=== PATIENT | female | born 1940 | race Caucasian/White ===

== ENCOUNTER → 2017-06-12 08:24 | Outpatient (CLI) | payer MEDICARE, BC ==
[2012-06-26 06:44] VITALS: BMI 34.8
== END | disposition home or self-care (01) ==
LOC: D.RAD 08:24
DX: K21.9 Gastro-esophageal reflux disease without esophagitis (principal)

== ENCOUNTER → 2017-08-09 17:32 | Outpatient (CLI) | payer MEDICARE, BC ==
[2012-06-26 06:44] VITALS: BMI 34.8
== END | disposition home or self-care (01) ==
LOC: D.MAMMO 09:30
DX: Z12.31 Encounter for screening mammogram for malignant neoplasm of breast (principal)

== ENCOUNTER 2018-09-10 13:51 | Emergency (ER) | payer MEDICARE, BC ==
[~2018-09-10] VITALS: Ht 157.5 cm; Wt 76.4 kg
[2018-09-10 13:54] VITALS: Ht 157.5 cm; Wt 76.4 kg
[2018-09-10] MEDS ORDERED: ELIQUIS5 MG PO (13:56)
[2018-09-10] MEDS ORDERED: COZAAR25 MG PO (13:56)
[2018-09-10] MEDS ORDERED: GLUCOPHAGE500 MG PO (13:56)
[2018-09-10 14:43] LABS: BASOPHILS 0.2 % (0-2); HEMATOCRIT 32.8 % (36.0-48.0); HEMOGLOBIN 10.9 g/dL (12-16); IMMATURE GRANULOCYTES 0.4 % (0-5); MCH 28.9 pg (26.0-34.0); MCHC 33.2 g/dL (31.0-37.0); MEAN PLATELET VOLUME 10.6 fL (7.4-10.4); MONOCYTES 7.8 % (2-11); NEUTROPHILS 79.6 % (40-80); RBC 3.77 10x6/uL (4.00-5.40); RDW 14.1 % (11.5-14.5); WBC 5.4 10x3/uL (4.8-10.8)
[2018-09-10 14:48] LABS: PLATELET COUNT 172 10x3/uL (130-400)
[2018-09-10 14:58] LABS: ALBUMIN 3.6 g/dL (3.4-5.0); ALKALINE PHOSPHATASE 80 U/L (46-116); ALT (SGPT) 13 U/L (10-68); BILIRUBIN - TOTAL 0.48 mg/dL (0.2-1.3); CALC OSMOLALITY 274 mosm/kg (275-300); CALCIUM 8.8 mg/dL (8.5-10.1); CARBON DIOXIDE 20.1 mmol/L (21.0-32.0); CHLORIDE - SERUM 103 mmol/L (98-107); GLUCOSE 108 mg/dL (74-106); POTASSIUM - SERUM 3.7 mmol/L (3.5-5.1); PROTEIN - SERUM 7.3 g/dL (6.4-8.2); SODIUM 136 mmol/L (136-145); UREA NITROGEN 18 mg/dL (7-18); eGFR NON AFRICAN AMERICAN 57 mL/min (90-120)
[2018-09-10 15:16] LABS: CKMB 0.2 U/L (0.0-3.6); CREATINE KINASE 49 UL (21-215); TROPONIN-I 0.024 ng/mL (0.000-0.060)
[2018-09-10 15:49] LABS: APPEARANCE CLEAR (CLEAR); BILIRUBIN NEGATIVE (NEGATIVE); COLOR YELLOW (YELLOW); GLUCOSE NEGATIVE (NEGATIVE); KETONE NEGATIVE (NEGATIVE); NITRITE NEGATIVE (NEGATIVE); PROTEIN NEGATIVE (NEGATIVE); UROBILINOGEN NORMAL (NORMAL)
[2018-09-10 15:50] LABS: WHITE CELLS - URINE 0-5 /hpf (0-5)
[2018-09-10] MEDS ORDERED: LEVAQUIN750 MG PO (16:42)
[2018-09-10 17:33] VITALS: BP 155/70
== END 2018-09-10 17:10 | disposition home or self-care (01) ==
LOC: D.ER 13:51
PROVIDERS: Emergency Medicine
DX: J15.9 Unspecified bacterial pneumonia (principal); E11.9 Type 2 diabetes mellitus without complications; I10 Essential (primary) hypertension

== ENCOUNTER → 2018-11-26 13:00 | Outpatient (CLI) | payer MEDICARE, BC ==
[2018-09-10 13:54] VITALS: BMI 30.8
[~2018-11-26 13:00] MED LIST: COZAAR25 MG PO; ELIQUIS5 MG PO; GLUCOPHAGE500 MG PO; LEVAQUIN750 MG PO
== END | disposition home or self-care (01) ==
LOC: D.CT 13:00
PROVIDERS: ATTEND Internal Medicine Pulmonary Disease
DX: R93.89 Abnormal findings on diagnostic imaging of other specified body structures (principal)

== ENCOUNTER 2019-03-06 20:16 | Observation (INO) | payer MEDICARE, BC ==
[~2019-03-06] VITALS: Ht 157.5 cm; Wt 77.9 kg
--- NOTE | ~2019-03-06 | HEMODYNAMI ---
PATIENT:SKYE SUERO MEDICAL RECORD: [id number] : 42 [facility]ATION[facility] [facility] [id number] ADMISSION DATE: 03/06/19 Generatedon:03/07/201914:07 Patient name: SKYE SUERO Patient #: [id number] SSN: [id number] : 1940 Date of study: 03/07/2019 Page: Of Hemodynamic Procedure Report Patient Data Patient Demographics Procedure consent was obtained First Name: SKYE Gender: Female Last Name: NIMO : 1940 Middle Initial: Gorge Age: 78 year(s) Patient #: [id number] Race: SSN: [id number] Additional ID: [id number] Contact details Address: [address] [place] [address] [place] [place] [facility] Zip code: [address] Past Medical History Allergies Allergen Reaction Date Comments Reported Other allergy 03/07/2019 plavix, pcn Other allergy 03/07/2019 PCN Admission Admission Data Admission Date: 03/06/2019 Admission Time: 21:58 Arrival Date: 03/07/2019 Arrival Time: 0:00 Admit Source: Other Insurance Payor: Private Room #: D.2120 health insurance, Medicare Height (in.): 61.81 BSA: 1.78 (m2) Height (cm.): 157 BMI: 31.24 (kg/m2) Weight (lbs.): 169.76 Weight (kg.): 77 Lab Results Lab Result Date: 03/07/2019 Lab Result Time: 0:00 Biochemistry Name Units Result Min Max BUN mg/dl 16 --(---*)-- 7 18 Creatinine mg/dl 0.6 --(*---)-- 0.6 1.3 eGFR ml/min 0.7946018 *-(----)-- 90 120 NONAFRICAN CBC Name Units Result Min Max Hemoglobin g/dl 17.1 --(---*)-- 13.5 17.5 Procedure Procedure Types Cath Procedure Diagnostic Procedure [facility] w/Coronaries FFR/IVUS FFR Initial FFR Additional Sedation Charges Moderate Sedation up to 30 minutes PCI Procedure Coronary Stent Coronary Stent Initial Hemochron ACT Test Procedure Description Procedure Date Procedure Date: 03/07/2019 Procedure Start Time: 13:44 Procedure End Time: 14:05 Procedure Staff Name Function Jason Carey MD Performing Physician Ketty Middleton RT Monitor Alessandra Rocha RN Nurse Abiola Callaway RT Scrub Indication Chest pain Procedure Data Cath Procedure Fluoroscopy Diagnostic fluoroscopy Total fluoroscopy Time: 5.5 time: 5.5 min min Diagnostic fluoroscopy Total fluoroscopy dose: 745 dose: 745 mGy mGy Contrast Material Contrast Material Type Amount (ml) Isovue 300 78 Entry Location Entry Primary Successful Side Size Upsize Upsize Entry Closure Succes sful Closure Location (Fr) 1 (Fr) 2 (Fr) Remarks Device Remarks Femoral Right 5 Fr 6 Fr Exoseal artery Short Estimated blood loss: 10 ml Diagnostic catheters Device Type Used For End Catheter Placement MULTIPACK Pigtail 5 Fr Ventriculography catheter MULTIPACK JL 4.0 5Fr Procedure catheter MULTIPACK 3DRC 5Fr Procedure catheter Procedure Complications No complications Procedure Medications Medication Administration Route Dosage Oxygen etCO2 Nasal cannula 2 l/min Lidocaine 2% added to field 20 Heparin Flush Bag added to field 2 bags (1000units/500ml NS) 0.9% NaCl I.V. 100 ml/hr Radial Cocktail I.A. 1 syringe (Verapamil 2mg/Nitro 400mcg/Heparin 1500units) Versed I.V. 1 mg Fentanyl I.V. 50 mcg Versed I.V. 1 mg Fentanyl I.V. 50 mcg Heparin Bolus I.V. 4000 units Hemodynamics Rest BSA: 1.78 (m2) HGB: 17.1 (g/dl) O2 Consumption: Estimated: 162.75 (ml/min) O2 Co nsumption indexed: Estimated:91.43 (ml/min/m) Heart Rate: 72 (bpm) Snapshots Pre Cath Intra NCS Post Cath Vital Signs Time Heart Resp SPO2 etCO2 NIBP (mmHg) Rhythm Pain Sedation Rate (ipm) (%) (mmHg) Status Level (bpm) 13:27:16 68 19 97 24.7 Time NSR 0 (11) 10(A) Exceeded , No pain 13:31:34 64 12 96 18.7 169/84(127) NSR 0 (11) 10(A) , No pain 13:35:48 60 12 97 22.5 143/92(127) NSR 0 (11) 10(A) , No pain 13:40:00 60 12 97 20.2 148/73(117) NSR 0 (11) 10(A) , No pain 13:44:14 64 13 96 20.2 146/74(106) NSR 0 (11) 9(A) , No pain 13:48:26 62 14 96 33.8 134/77(95) NSR 0 (11) 9(A) , No pain 13:52:36 60 15 97 33.8 124/65(106) NSR 0 (11) 9(A) , No pain 13:56:44 61 28 96 36.8 128/66(102) NSR 0 (11) 9(A) , No pain 14:00:49 65 11 93 33.7 144/73(106) NSR 0 (11) 10(A) , No pain 14:05:01 60 12 97 35.2 131/72(105) NSR 0 (11) 10(A) , No pain Medications Time Medication Route Dose Verified Delivered Reason Not es Effectiveness by by 13:30:30 Oxygen etCO2 2 l/min Jason Aparicio used for Nasal Aurelio Rocha RN procedure cannula 13:30:37 Lidocaine 2% added 20ml Jason Gomez for local to vial Aurelio Carey MD anesthetic field 13:30:43 Heparin Flush added 2 bags Jason Gomez used for Bag to Aurelio Carey MD procedure (1000units/500ml field NS) 13:30:51 0.9% NaCl I.V. 100 Jason Aparicio Per physician ml/hr Aurelio Rocha RN 13:31:03 Radial Cocktail I.A. 1 Jason Gomez for (Verapamil syringe Aurelio Carey MD vasodilation 2mg/Nitro 400mcg/Heparin 1500units) 13:42:18 Versed I.V. 1 mg Jason Castilloie for sedation Aurelio Rocha RN 13:42:23 Fentanyl I.V. 50 mcg Jason Aparicio for sedation Aurelio Rocha RN 13:47:04 Versed I.V. 1 mg Jason Aparicio for sedation Tauth MD Rocha RN 13:47:07 Fentanyl I.V. 50 mcg Jason Aparicio for sedation Aurelio Rocha RN 13:50:14 Heparin Bolus I.V. 4000 Jason Aparicio for nikhil ified units Aurelio Rocha RN anticoagulation with dr carey Procedure Log Time Note 13:23:02 Arrival Date: 03/07/2019 12:00:00 AM 13:23:04 Admit Source: Other 13:23:10 Insurance Payor : Private health insurance, Medicare 13:23:15 Patient Height : 61.81 inches 13:23:18 Patient Weight : 169.76 lbs 13:24:25 Diagnostic Cath Status : Urgent 13:25:26 Procedure Status Urgent Heart Cath (IP). 13:25:30 Abiola Callaway RT(R) sent for patient. Start room use. 13:25:31 Time tracking: Regular hours (M-F 7:00 - 5:00) 13:25:36 Plan of Care:Hemodynamics will remain stable., Cardiac rhythm will remain stable., Comfort level will be maintained., Respiratory function will remain adequate., Patient/ family verbilizes understanding of procedure., Procedure tolerated without complication., Recovers from procedure without complications.. 13:25:42 Patient received from Med II to CCL 2 Alert and oriented. Tansferred to table in Supine position. 13:25:44 Signed procedure consent form obtained from patient. 13:25:45 Warm blankets applied, and bobby hugger turned on for patient comfort. 13:25:46 Correct patient and procedure confirmed by team. 13:25:46 ECG and BP/O2 sat monitors applied to patient. 13:25:47 Baseline sample Acquired. 13:25:47 Vital chart was started 13:25:52 Full Disclosure recording started 13:25:58 H&P Date Dictated: 03/06/2019 Within 30 days and on chart.. 13:25:59 Pre-procedure instructions explained to patient. 13:26:03 Family in patients room. 13:26:07 Patient NPO since Midnight. 13:26:22 Patient allergic to Other allergyPCN 13:26:25 Is the patient allergic to Iodine/contrast media? No. 13:26:26 Was the patient premedicated? Yes 13:26:29 Is patient on blood thinner?Yes 13:28:31 Patient diabetic? Yes. 13:28:34 If on Metformin: Last Dose? 03/06/2019 13:28:50 Dentures? No . 13:28:56 ACC The patient was administered the following blood thiners within the last 24 hours: ACCPlavix 13:29:10 Patient pain scale 0/10 ?. 13:29:17 IV patent on arrival in left forearm with 0.9% NaCl at [facility]. 13:29:22 Lab results completed and on chart. 13:29:27 Stress Test: no; N/A ? 13:29:32 Right Radial & Right Groin area was prepped with chlora-prep and draped in sterile fashion 13:29:34 Alarms reviewed by R. N. 13:29:34 Sharps counted by scrub and verified by R.N. 13:30:30 Oxygen 2 l/min etCO2 Nasal cannula was administered by Alessandra Rocha RN; used for procedure; Verbal order read back and verified. 13:30:37 Lidocaine 2% 20ml vial added to field was administered by Jason Carey MD; for local anesthetic; Verbal order read back and verified. 13:30:43 Heparin Flush Bag (1000units/500ml NS) 2 bags added to field was administered by Jason Carey MD; used for procedure; Verbal order read back and verified. 13:30:51 0.9% NaCl 100 ml/hr I.V. was administered by Alessandra Rocha RN; Per physician; Verbal order read back and verified. 13:31:03 Radial Cocktail (Verapamil 2mg/Nitro 400mcg/Heparin 1500units) 1 syringe I.A. was administered by Jason Carey MD; for vasodilation; Verbal order read back and verified. 13:31:48 Physician arrived 13:33:17 Maximum allowable contrast dose (3.7 X eGFR X 0.75)35 ml. 13:33:21 3b) 30-44 Moderately reduced kidney function. 13:34:49 Procedure type changed to Cath procedure, Diagnostic procedure, LHC, LHC w/Coronaries, FFR/IVUS, FFR Initial, FFR Additional, Sedation Charges, Moderate Sedation up to 30 minutes, PCI procedure, Coronary Stent, Coronary Stent Initial, Hemochron ACT Test 13:35:19 Indication : Chest pain 13:39:38 Risk of MAXIM: 3.1 13:41:55 --------ALL STOP TIME OUT------ 13:41:56 Final Timeout: patient, procedure, and site verified with staff and physician. All members of the team are in agreement. 13:41:58 Right Radial & Right Groin site verified by team. 13:42:04 Fire Safety Assessment: A--An alcohol-based skin anteseptic being used preoperatively., C--Open oxygen or nitrous oxide is being used., D--An ESU, laser, or fiber-optic light is being used. 13:42:14 Physical assessment completed. ASA score P 2 - A patient with mild systemic disease as per Jason Carey MD. 13:42:18 Versed 1 mg I.V. was administered by Alessandra Rocha RN; for sedation; Verbal order read back and verified. 13:42:18 Sedation plan: IV Moderate Sedation Medication:Versed, Fentanyl 13:42:23 Fentanyl 50 mcg I.V. was administered by Alessandra Rocha RN; for sedation; Verbal order read back and verified. 13:44:32 Use device set Femoral Dx 13:44:36 Procedure started. 13:44:46 Local anesthetic to right femoral artery with Lidocaine 2% by Jason Carey MD.INITIAL ACCESS ONLY 13:44:57 A 5 Fr sheath was inserted into the Right Femoral artery 13:44:59 ACIST Syringe (11156) opened to sterile field. 13:45:00 Bag Decanter (2002) opened to sterile field. 13:45:01 Medline Cath Pack ([id number]) opened to sterile field. 13:45:02 ACIST Hand Control (43641) opened to sterile field. 13:45:02 ACIST Manifold (82140) opened to sterile field. 13:45:03 DIAGNOSTIC Multipack 5Fr catheter set (EW2481) opened to sterile field. 13:45:08 SHEATH 5FR [place] (DEH161) opened to sterile field. 13:45:08 EMERALD Guide Wire (591-898) opened to sterile field. 13:46:27 A MULTIPACK Pigtail 5 Fr catheter was advanced over the wire and used for Ventriculography. 13:46:30 LV angiography performed. 13:46:33 LV gram done using DOYLE 13:46:39 EF : 40 % 13:47:04 Versed 1 mg I.V. was administered by Alessandra Rocha RN; for sedation; Verbal order read back and verified. 13:47:07 Fentanyl 50 mcg I.V. was administered by Alessandra Rocha RN; for sedation; Verbal order read back and verified. 13:47:31 Catheter removed. 13:47:38 A MULTIPACK JL 4.0 5Fr catheter was advanced over the wire and used for Procedure. 13:47:43 LCA angiography performed. 13:48:01 Catheter removed. 13:48:12 A MULTIPACK 3DRC 5Fr catheter was advanced over the wire and used for Procedure. 13:48:16 RCA angiography performed. 13:48:18 Catheter removed. 13:49:54 [place] Verrata Plus pressure wire (86447D) opened to sterile field. 13:49:55 INFLATOR Merit BasixCompak (TZ9168) opened to sterile field. 13:49:55 GUIDE 6FR XBLAD 3.5 catheter ([id number]) opened to sterile field. 13:49:56 CHOICE PT Extra Support 182cm wire ([id number]) opened to sterile field. 13:49:57 SHEATH 6FR [place] (ZPT934) opened to sterile field. 13:50:04 Proceeding to intervention. 13:50:14 Heparin Bolus 4000 units I.V. was administered by Alessandra Rocha RN; for anticoagulation; verified with dr carey Verbal order read back and verified. 13:50:15 Sheath upsized to a 6 Fr Short. 13:50:27 Pre PCI Site: [place] mLAD has 95% stenosis. 13:50:38 6 Fr xblad guide catheter was inserted over the wire 13:50:54 choice wire advanced. 13:50:57 Wire advanced across lesion. 13:52:35 Inflate balloon Inflation number: 1 A EUPHORA 3.5 x 15 Balloon ([id number]) was prepped and advanced across the Mid LAD , then inflated to 10 NIMA for 0:03 (min:sec) . 13:52:49 Inflation number: 2 The EUPHORA 3.5 x 15 Balloon ([id number]) was reinflated across the Mid LAD , to 11 NIMA for 0:07 (min:sec) . 13:53:13 Balloon removed over the wire. 13:56:22 Place stent Inflation Number: 3 A CAREN RX 3.5 x 22 stent ([id number]) was prepped and advanced across the Mid LAD 99. The stent was deployed at 19 NIMA for 1:42 (min:sec) 0. 13:56:30 Stent catheter was removed intact over wire. 13:56:51 Wire removed. 13:56:56 FFR/IFR wire advanced. 13:57:10 mCirc lesion measured at .92 with IFR 13:57:14 Wire removed. 13:57:16 Catheter removed. 13:57:36 6 Fr AR1 guide catheter was inserted over the wire 13:57:44 FFR/IFR wire advanced. 14:00:00 mRCA lesion measured at .98 with IFR 14:00:05 Wire removed. 14:00:07 Catheter removed. 14:00:26 Sheath removed intact; hemostasis achieved with Exoseal to the Right Femoral artery. 14:01:04 ACT drawn and resulted at 200 seconds. (normal therapeutic range 180-240 seconds). 14:01:48 EXOSEAL 6Fr (EX600) opened to sterile field. 14:01:51 Procedure ended.(Physican Out) 14:02:07 Fluoroscopy time 05.50 minutes. 14:02:12 Fluoroscopy dose: 745 mGy 14:02:12 Flurop Dose total: 745 14:02:17 Dose Area Product 93717 mGy/cm. 14:02:21 Contrast amount:Isovue 300 78ml. 14:02:30 Maximum allowable dose exceeded? No. 14:02:32 Sharps counted by scrub and verified by R.N. 14:02:35 Insertion/operative site no bleeding no hematoma. 14:02:40 Post right femoral artery:stable 14:02:51 Post-procedure physical assessment completed. ASA score P 2 - A patient with mild systemic disease as per Jason Carey MD. 14:03:04 Estimated blood loss: 10 ml 14:03:06 Post procedure instruction explained to patient.Patient verbalizes understanding. 14:04:47 Procedure and supply charges have been captured, reviewed, submitted and are correct. 14:05:06 Procedure Complication : No complications 14:05:09 Vital chart was stopped 14:05:11 [facility] Findings: MVD- PCI performed (see procedure note) 14:05:14 See physician's report for complete and final results. 14:05:16 Report given to Pre/Post Procedure Room. 14:05:20 Patient transfered to Pre/Post Procedure Room with Bed. 14:05:22 Procedure ended. 14:05:22 Full Disclosure recording stopped 14:05:33 End room use (Document Last) 14:05:55 End room use (Document Last) 14:06:34 End room use (Document Last) 14:06:56 ACC-PCI Only Patient was given prescriptions, or instructed by Jason Carey MD to start/continue the following medications upon discharge: Plavix Intervention Summary Intervention Notes Time ActionType Lesion and Equipment Used Action# Pressure Duration Attributes 13:52:35 Inflate Mid LAD EUPHORA 3.5 x 1 10 00:03 balloon 15 Balloon ([id number]) 13:52:49 Reinflate Mid LAD EUPHORA 3.5 x 2 11 00:08 balloon 15 Balloon ([id number]) 13:56:22 Place stent Mid LAD CAREN RX 3.5 x 3 19 01:42 22 stent ([id number]) Device Usage Item Name Manufacture Quantity Catalog Number Hospital Part Current Minimal Lot# / Charge Number Stock Stock Serial# Code ACIST Syringe Acist 1 73565 818080 040717 225213 20 (87969) Medical Systems Inc Bag Decanter Microtek 1 2001S 715571 74049 222821 5 (2001S) Medical Inc. Medline Cath Medline 1 [id number] 395636 53324 193553 5 Pack ([id number]) ACIST Hand Acist 1 60061 426655 087268 252025 5 Control Medical (69397) Systems Inc ACIST Manifold Acist 1 87030 044750 634459 960508 5 (45841) Medical Systems Inc DIAGNOSTIC Cardinal 1 BE6111 239987 70974 101736 30 Multipack 5Fr Health catheter set (CL7526) SHEATH 5FR Terumo 1 KMZ838 588684 525947 052159 5 [place] (EQE327) EMERALD Guide Cardinal 1 502-455 256402 220050 894470 5 Wire (502-957) Health MULTIPACK Cardinal 1 323400 5 Pigtail 5 Fr Health catheter MULTIPACK JL Cardinal 1 614170 5 4.0 5Fr Health catheter MULTIPACK 3DRC Cardinal 1 034672 5 5Fr catheter Health [place] 1 87990C 956416 866763359 722951 5 Verrata Plus pressure wire (01281Y) INFLATOR Merit Merit 1 VV4537 752237 919289 917845 15 BasixCompak Medical (DT9936) GUIDE 6FR Cardinal 1 [id number] 175648 712437 342560 10 XBLAD 3.5 Health catheter ([id number]) CHOICE PT [place] 1 [id number] 684686 996663 975079 5 Extra Support Scientific 182cm wire (4847579N8) SHEATH 6FR Terumo 1 FSL596 852134 679450 634507 40 [place] (HSA242) EUPHORA 3.5 x Medtronic 1 [id number] 606893 048088 691359 5 [id number] 15 Balloon (KHQ7557T) CAREN RX 3.5 x Medtronic 1 [id number] 411398 7971832 592443 5 [id number] 22 stent ([id number]) EXOSEAL 6Fr Cardinal 1 EX600 058848 405776 827918 10 (EX600) Health Signature Audit [place] Stage Time Signature Unsigned Intra-Procedure 03/07/2019 Ketty Middleton 2:05:55 PM RT(R) Intra-Procedure 03/07/2019 Alessandra Rocha RN 2:06:34 PM Intra-Procedure 03/07/2019 Jason Carey 2:07:25 PM Signatures Performing Physician : Signature : Jason Carey MD Date : Time : Monitor : Ketty Middleton Signature : RT Date : Time : Nurse : Alessandra Rocha RN Signature : Date : Time : [place] [address] [place] [address]
[2019-03-06 20:45] LABS: BASOPHILS 0.6 % (0-2); EOSINOPHILS 3.5 % (0-7); HEMOGLOBIN 11.4 g/dL (12-16); IMMATURE GRANULOCYTES 0.3 % (0-5); LYMPHOCYTES 33.4 % (15-50); MCH 29.2 pg (26.0-34.0); MCHC 32.6 g/dL (31.0-37.0); MCV 89.5 fL (80.0-100.0); MEAN PLATELET VOLUME 10.5 fL (7.4-10.4); MONOCYTES 8.8 % (2-11); NEUTROPHILS 53.4 % (40-80); RBC 3.91 10x6/uL (4.00-5.40); RDW 14.4 % (11.5-14.5); WBC 6.9 10x3/uL (4.8-10.8)
[2019-03-06 20:51] LABS: INR 1.02 (0.85-1.17); PROTIME 13.3 SECONDS (11.6-15.0)
[2019-03-06 20:52] LABS: APTT 30.3 SECONDS (22.8-39.4)
[2019-03-06 20:54] LABS: CALC OSMOLALITY 285 mosm/kg (275-300); CARBON DIOXIDE 26.1 mmol/L (21.0-32.0); CHLORIDE - SERUM 102 mmol/L (98-107); CREATININE - SERUM 1.5 mg/dL (0.6-1.3); GLUCOSE 137 mg/dL (74-106); POTASSIUM - SERUM 3.8 mmol/L (3.5-5.1); SODIUM 139 mmol/L (136-145); UREA NITROGEN 28 mg/dL (7-18); eGFR NON AFRICAN AMERICAN 36 mL/min (90-120)
[2019-03-06 20:55] LABS: PLATELET COUNT 234 10x3/uL (130-400)
[2019-03-06 21:10] LABS: ALBUMIN 3.8 g/dL (3.4-5.0); ALKALINE PHOSPHATASE 73 U/L (46-116); ALT (SGPT) 17 U/L (10-68); BILIRUBIN - TOTAL 0.25 mg/dL (0.2-1.3); CKMB 1.2 U/L (0.0-3.6); CREATINE KINASE 55 UL (21-215); PROTEIN - SERUM 7.8 g/dL (6.4-8.2); TROPONIN-I < 0.017 ng/mL (0.000-0.060)
--- NOTE | 2019-03-06 21:20 | NUR ---
PT AMBULATED TO RESTROOM INDEPENDENTLY.
[2019-03-06 21:57] LABS: APPEARANCE CLOUDY (CLEAR); BILIRUBIN NEGATIVE (NEGATIVE); COLOR STRAW (YELLOW); GLUCOSE NEGATIVE (NEGATIVE); KETONE NEGATIVE (NEGATIVE); NITRITE NEGATIVE (NEGATIVE); PROTEIN TRACE mg/dL (NEGATIVE); SPECIFIC GRAVITY 1.015 (1.005-1.020); UROBILINOGEN NORMAL (NORMAL)
[2019-03-06 22:02] LABS: BACTERIA MODERATE /hpf (NEGATIVE)
[2019-03-06] MEDS ORDERED: SYNTHROID50 MCG PO (22:43)
[2019-03-07 00:30] VITALS: BP 163/74
[2019-03-07 00:44] VITALS: BP 163/74; BMI 31.4
--- NOTE | 2019-03-07 02:15 | NUR ---
PATIENT RESTING COMFORTABLE IN BED. RESPIRATIONS ARE EVEN AND UNLABORED. NO S/S OF DISTRESS. CALL LIGHT WITHIN REACH. WILL CPOC.
[2019-03-07 04:30] VITALS: BP 138/54
[2019-03-07 05:10] LABS: BASOPHILS 0.8 % (0-2); EOSINOPHILS 3.8 % (0-7); HEMATOCRIT 31.7 % (36.0-48.0); HEMOGLOBIN 10.1 g/dL (12-16); IMMATURE GRANULOCYTES 0.2 % (0-5); LYMPHOCYTES 40.3 % (15-50); MCH 28.5 pg (26.0-34.0); MCHC 31.9 g/dL (31.0-37.0); MCV 89.5 fL (80.0-100.0); MEAN PLATELET VOLUME 10.3 fL (7.4-10.4); MONOCYTES 8.9 % (2-11); PLATELET COUNT 196 10x3/uL (130-400); RBC 3.54 10x6/uL (4.00-5.40); RDW 14.2 % (11.5-14.5); WBC 6.3 10x3/uL (4.8-10.8)
[2019-03-07 05:34] LABS: % SATURATION 11 % (15-55); IRON 36 ug/dl (35-150); TOTAL IRON BIND CAPACITY 317 ug/dl (260-445); UNSAT IRON BIND CAPACITY 281 ug/dl (150-375)
[2019-03-07 06:13] LABS: ALBUMIN 3.2 g/dL (3.4-5.0); ALKALINE PHOSPHATASE 59 U/L (46-116); BILIRUBIN - TOTAL 0.23 mg/dL (0.2-1.3); CALC OSMOLALITY 284 mosm/kg (275-300); CALCIUM 8.4 mg/dL (8.5-10.1); CARBON DIOXIDE 26.6 mmol/L (21.0-32.0); CHLORIDE - SERUM 104 mmol/L (98-107); CKMB 2.1 U/L (0.0-3.6); CREATINE KINASE 50 UL (21-215); CREATININE - SERUM 1.3 mg/dL (0.6-1.3); FERRITIN 19 ng/mL (3-244); GLUCOSE 104 mg/dL (74-106); MAGNESIUM - SERUM 1.4 mg/dL (1.8-2.4); PRO BNP 1774 pg/mL (0-450); PROTEIN - SERUM 6.7 g/dL (6.4-8.2); SODIUM 141 mmol/L (136-145); THYROID STIMULATING HORMONE 2.81 uIU/mL (0.36-3.74); UREA NITROGEN 25 mg/dL (7-18); eGFR NON AFRICAN AMERICAN 42 mL/min (90-120)
[2019-03-07 06:50] LABS: ALT (SGPT) 12 U/L (10-68)
[2019-03-07 06:51] LABS: TROPONIN-I 0.416 ng/mL (0.000-0.060)
--- NOTE | 2019-03-07 07:10 | NUR ---
REPORT RECEIVED FROM MARKETING PR INTERN AND PATIENT CARE ASSUMED. PATIENT LAYING IN BED AWAKE, ALERT AND ORIENTED X 4. PATIENT DENIES ANY NEEDS OR PAIN. AT BS. WILL CONTINUE WITH PLAN OF CARE. SR UP X 2 BED IN LOW POSITION AND CALL LIGHT IN REACH. PATIENT IS NPO AWAITING CARDIOLOGY CONSULT.
[2019-03-07 09:07] VITALS: Ht 157.5 cm; Wt 77.9 kg
[2019-03-07 12:01] VITALS: BP 180/70
--- NOTE | 2019-03-07 13:00 | NUR ---
PATIENT IS STABLE AND VSS. PATIENT TO [facility] AND [facility] TEAM.
--- NOTE | 2019-03-07 13:28 | NUR ---
PATIENT IS STABLE AND VSS. PATIENT DENIES ANY NEEDS OR PAIN. SON IN ROOM. WILL CONTNUE TO MONITOR. SR UP X 2 BED IN LOW POSITION AND CALL LIGHT IN REACH.
[2019-03-07 14:18] VITALS: BP 185/79
--- NOTE | 2019-03-07 14:31 | NUR ---
PER DR CARRERO, THERE ARE SCRIPTS ON THE CHART AND PATIENT CAN BE DISCHARGED.
[2019-03-07] MEDS ORDERED: PLAVIX75 MG PO (15:07)
[2019-03-07] MEDS ORDERED: ASPIRIN325 MG PO (15:08)
[2019-03-07] MEDS ORDERED: PRAVACHOL20 MG PO (15:11)
[2019-03-07] MEDS ORDERED: CIPRO500 MG PO (15:12)
--- NOTE | 2019-03-07 19:33 | NUR ---
REPORT RECIEVED AND INITIAL ROUNDS COMPLETED. PT RESTING IN BED WITH NO DISTRESS. AT BEDSIDE. RIGHT GROIN DRESSING C/D/I. NO BRUISING, NO SWELLING. REMOVED IV TO LEFT OUTER A/C. REVIEWED DISCHARGE PAPERWORK AND COPIES SENT WITH PATIENT. PT DISCHARGED TO HOME. TAKEN TO PRIVATE VEHICLE IN WHEELCHAIR TO CARE OF .
--- NOTE | 2019-03-11 11:24 | OP ---
PATIENT NAME: SKYE SUERO MEDICAL RECORD: [id number] :42 LOCATION:D.M2 D.0 ADMISSION DATE:03/06/19 SURGEON: LORA CARRERO MD DATE OF OPERATION: 03/07/2019 PROCEDURES: 1. PTCA stent LAD. 2. IFR left circumflex. 3. IFR RCA. 4. Left heart catheterization. 5. Selective coronary angiography. 6. Left ventriculogram. INDICATION: Myocardial infarction. PROCEDURE IN DETAIL: After informed consent was obtained and after a detailed description of risks, benefits as well as alternative therapies, the patient elected to proceed with angiogram and angioplasty. The right femoral area was prepped and draped in normal sterile fashion. Right femoral artery was cannulated via modified Seldinger technique with placement of 6-German sheath. All catheters exchanged through this sheath. FINDINGS: The left ventriculogram was performed in standard 30-degree DOYLE view reveals mild global hypokinesis, ejection fraction in the 40% range. SELECTIVE CORONARY ANGIOGRAPHY: 1. Left main is with no significant angiographic disease. 2. Left anterior descending has 99% stenosed. 3. Left circumflex has moderate irregularities. The IFR is normal. 4. Right coronary artery has moderate irregularities, IFR is normal. PTCA STENT OF THE LAD: The stent used was a 3.5 x 15 mm Silvestre. Result was 0% residual stenosis. OVERALL IMPRESSION: Successful percutaneous transluminal coronary angioplasty stent of the left anterior descending going from 99% initial stenosis to 0% residual. TRANSINT:[id number] Voice Confirmation ID: [id number] DOCUMENT ID: [id number] LORA CARRERO MD at 1124 CC: [id number] DICTATION DATE: 03/07/19 1405 FIELD CANE SCALER HELPER: 03/07/19 1446 DIS IN 03/07/19 [place] [address]
--- NOTE | 2019-03-11 11:24 | CN ---
PATIENT NAME:SKYE MCCALL MEDICAL RECORD: [id number] : 42 LOCATION:[facility] D.2120 ADMIT DATE: 03/06/19 ACCOUNT: [id number] CONSULTING PHYSICIAN: LORA CARRERO MD REFERRING PHYSICIAN: SHARONDA DELGADO MD DATE OF CONSULTATION: 03/07/2019 CARDIOLOGY CONSULTATION DIAGNOSES: 1. Non-Q-wave myocardial infarction. 2. Hypertension. 3. Hyperlipidemia. 4. Diabetes. HISTORY OF PRESENT ILLNESS: Mrs. Mccall presents with chest pain. She has been having chest pain for approximately 2 weeks. It has been mild until yesterday. She had a severe episode of chest pain. Her troponin is positive. Her EKG is with nonspecific ST-T abnormalities. PHYSICAL EXAMINATION: CONSTITUTIONAL/GENERAL APPEARANCE: Well nourished, well developed, appears stated age. EYES: Lids and conjunctivae noninjected. No discharge. No pallor. ENT: Lips within normal limit. No cyanosis. No pallor. NECK: Carotid arteries, bilateral normal upstroke. No bruits. No thrills. No jugular venous pressure or distention. CERVICAL LYMPH NODES: Nontender. Nonenlarged. THYROID: Not enlarged. No nodules. CARDIOVASCULAR: Precordial exam, nondisplaced. No heaves or pericardial thrills. Rate and rhythm, regular. Heart sounds, normal S1, normal S2. No S3, no gallop, no rub. Systolic murmur, not heard. Diastolic murmur, not heard. RESPIRATORY: Respiratory effort, unlabored. Normal curvature. No thoracic deformity. No chest wall tenderness. Percussion, resonant. Auscultation, clear. No wheezes, no rales, no rhonchi. ABDOMEN: Soft, nondistended, nontender. No abdominal pain, no vomiting and normal appetite. MUSCULOSKELETAL: No joint tenderness, normal gait, normal tone. SKIN: Warm and dry. OVERALL IMPRESSION: Non-Q-wave myocardial infarction. At this time, we will proceed with coronary angiography. Further care depends upon findings of the angiography. TRANSINT:[id number] Voice Confirmation ID: [id number] DOCUMENT ID: [id number] LORA CARRERO MD at 1124 CC: [id number] DICTATION DATE: 03/07/19 0908 COST ANALYST: 03/07/19 1124 DIS IN 03/07/19 [facility] [address] [place] [address]
--- NOTE | 2019-03-11 11:25 | EC ---
PATIENT:SKYE SUERO DATE OF SERVICE: 03/06/19 SEX: F MEDICAL RECORD: [id number] DATE OF : 42 LOCATION:D.M2 D.212 AGE OF PATIENT: 78 ADMISSION DATE: 03/06/19 REFERRING PHYSICIAN: INTERPRETING PHYSICIAN: LORA CAREY MD ECHOCARDIOGRAM REPORT ECHO CHARGES 4 ECHO COMPLETE Date: 03/07/19 CLINICAL DIAGNOSIS: GA ECHOCARDIOGRAPHIC MEASUREMENTS (adult normal given) AC root (d.<3.7cm) 2.7 cm LV Septum d (<1.2 cm> 1.1 cm Valve Excursion 1.5 cm LV Septum (systole) 1.2 cm Left Atria (s.<4.0cm> 4.0 cm LVPW d(<1.2cm) 0.9 cm RV (d.<2.3cm) 2.6 cm LVPW (sytole) 1.3 cm LV diastole(<5.6CM) 4.7 cm MV E-F(>70mm/sec) cm LV systole 3.4 cm LVOT Diameter 1.7 cm MV exc.(>10mm) cm Est.ejection fraction (50-75%) % DOPPLER: LVIT cm/sec A 90 cm/sec E 64 cm/sec LA cm/sec RVSP 19.1 mmHg LVOT 96 cm/sec AOP1/2T m/s Asc. Ao 139 cm/sec RVOT 76 cm/sec RA cm/sec PA 88 cm/sec AV Gradient Peak 7.7 mmHg AV Mean 4.1 mmHg AV Area 1.9 cm MV Gradient Peak 3.1 mmHg MV Mean 1.3 mmHg MV Area cm COMMENTS: Phone Triage Specialist: [facility] In File Operator: 1 Dr. Carey TAPE# PACS Pericardial Effusion N DATE OF SERVICE: 03/07/2019 FINDINGS: 1. Left ventricular chamber size is within normal limits. Left ventricular systolic function is normal. Overall ejection fraction estimated at 50% to 55%. 2. The left atrium is within normal limits. Right atrium and right ventricle chamber sizes are mildly dilated. 3. Valvular structures have normal structure and motion. 4. Doppler interrogation reveals trace mitral regurgitation, no other valvular insufficiency or stenosis. ECHOCARDIOGRAM REPORT [id number] SKYE SUERO 5. No evidence of pericardial effusion or left ventricular thrombus. TRANSINT:[id number] Voice Confirmation ID: [id number] DOCUMENT ID: [id number] LORA CAREY MD at 1125 CC: [id number] DICTATION DATE: 03/08/1940 CIVIL SERVICE WORKER: 03/08/19 1112 DIS IN 03/07/19 [place] [id number] [place] [id number]
== END 2019-03-07 19:34 | disposition home or self-care (01) ==
LOC: D.ER 20:16 → D.M2 21:58 → OBSVTIME 21:58 → D.SDCHOLD 03-07 10:55 → D.M2 03-07 10:55
PROVIDERS: Family Medicine; ADMIT Family Medicine; ATTEND Family Medicine
DX: I21.4 Non-ST elevation (NSTEMI) myocardial infarction (principal); I10 Essential (primary) hypertension; E78.5 Hyperlipidemia, unspecified; E11.9 Type 2 diabetes mellitus without complications
CPT/HCPCS: 93458; 93571; 93572; C9600